=== PATIENT | male | born 1945 | race Caucasian/White ===

== ENCOUNTER 2024-12-12 14:02 | Emergency (ER) | payer MEDICARE, SELFPAY ==
[2024-12-12 14:03] VITALS: BP 155/85; PULSE 110; RESP 17; TEMP 36.4; O2SAT 97
--- OUTSIDE RECORDS SUMMARY | 2024-12-12 14:03 | XMS_ITS | Encounter Summary ---
Author Organization [facility] Address [address] [place] [id number] Care Team Providers Care Emotionally Impaired Teacher Name Role Phone Yaneth Short MD Primary Care Provider [phone] Amelia Oliveros PA-C Unavailable [phone] Source Comments In the event this information is protected by the Federal Confidentiality of Alcohol and Drug AbusePatient Records regulations: The Federal rules restrict any use of the information to criminally investigate or prosecute any alcohol or drug abuse patient.[facility] Encounter Details Date Type Department Care Team (Late st Contact Info) Description 08/28/2024 [place] [id number] Provider, [facility] Financial Clearance Social History Tobacco Use Types Packs/Day Years Used Date Smoking Tobacco: Never Smokeless Tobacco: Never [facility] Utilities Answer Date Recorded In the past 12 months has [employer] electric, gas, oil, or water company threatened to shut off services in your home? No 08/14/2024 Social Connection and Isolation Panel [NHANES] A nswer Date Recorded In a typical week, how many times do you talk on the phone with family, friends, or neighbors? Twice a week 08/14/2024 How often do you get together with friends or re latives? Never 08/14/2024 How often do you attend zoroastrian or pentecostalism serv ices? Never 08/14/2024 Do you belong to any clubs o r organizations such as zoroastrian groups, unions, fraternal or athletic groups, or school groups? No 08/14/2024 How often do you attend meet ings of the clubs or organizations you belong to? Never 08/14/2024 Are you , , di vorced, , never , or living with a partner? 08/14/2024 AUDIT-C Answer Date Recorded Q1: How often do you have a drink containing alcohol? 4 or more times a week 08/14/2024 Q2: How many drinks containi ng alcohol do you have on a typical day when you are drinking? 1 or 2 Q3: How often do you have si x or more drinks on one occasion? Never 08/14/2024 Overall Financial Resource Strain (CARDIA) Answe r Date Recorded How hard is it for you to pa y for the very basics like food, housing, medical care, and heating? Not very hard 08/14/2024 PHQ-2 Answer Date Recorded PHQ-2 score 4 08/14/2024 [facility] - Occupational Stress Questionnaire Answer Date Recorded Do you feel stress - tense, restless, nervous, or anxious, or unable to sleep at night because your mind is troubled all the time - these days? To some extent 08/14/2024 Exercise Vital Sign Answer Date Recorde d On average, how many days pe r week do you engage in moderate to strenuous exercise (like a brisk walk)? 2 days 08/14/2024 On average, how many minutes do you engage in exercise at this level? 20 min 08/14/2024 Hunger Vital Sign Answer Date Recorded Within the past 12 months, y ou worried that your food would run out before you got the money to buy more. Never true 08/14/20 24 Within the past 12 months, t he food you bought just didn't last and you didn't have money to get more. Never true 08/14/2024 PRAPARE - Transportation Answer Date Re corded In the past 12 months, has l ack of transportation kept you from medical appointments or from getting medications? No 08/05 In the past 12 months, has l ack of transportation kept you from meetings, work, or from getting things needed for daily living? No 08/14/2024 Housing Stability Vital Sign Answer Brenden e Recorded In the last 12 months, was t here a time when you were not able to pay the mortgage or rent on time? No 08/14/2024 Number of Times Moved in the Last Year Not on fi le 08/14/2024 Homeless in the Last Year Not on file 2023 Area Deprivation Index Answer Date Haider rded National Score (1-100), lower number is lower ri sk 33 02/15/2024 State Score (1-10), lower number is lower risk 1 02/15/2024 Data from: https://www.neighborhoodatlas.medicine.[facility].edu/. Last address used for calculation [employer] 02/15/2024 Sex and Gender Information Value Date Recorded Sex Assigned at Male 02/13/2024 12:00 PM EDT Gender Identity Not on file Sexual Orientation Straight 02/13/2024 12 :00 PM EDT documented as of this encounter Functional Status Functional Status Response Date of Assess ment Are you deaf or do you have serious difficulty h earing? No 08/22/2024 Are you blind or do you have serious difficulty seeing, even when wearing glasses? No 08/22/2024 Do you have serious difficul ty walking or climbing stairs? No 08/22/2024 Do you have difficulty dressing or bathing? No 08/22/2024 Because of a physical, menta l, or emotional condition, do you have difficulty doing errands alone such as visiting a doctor's office or shopping? No 08/22/2024 Cognitive Status Response Date of Assessm ent Because of a physical, menta l, or emotional condition, do you have serious difficulty concentrating, remembering, or making decisions? No 08/22/2024 documented as of this encounter Plan of Treatment Not on file documented as of this encounter Visit Diagnoses Not on filedocumented in this encounter Care Teams Emotionally Impaired Teacher Relationship Specialty [place] [id number] [place] [address] PCP - General Internal Medicine 02/15/24 Amelia Oliveros PA-C [id number] [facility], [place] [phone] Content Management Consultant Internal Medicine 10/12/24 documented as of this encounter
--- OUTSIDE RECORDS SUMMARY | 2024-12-12 14:04 | XMS_ITS | Clinical Summary ---
Author Organization [facility] Address [address] [place] [id number] Care Team Providers Care Cfo Name Role Phone Yaneth Short MD Primary Care Provider [phone] Amelia Oliveros PA-C Unavailable [phone] Allergies No known active allergies Medications Medication Sig Dispensed Refills Start Date End Date Status torsemide (DEMADEX) 20 mg tablet Take 1 tablet by mouth once daily. 14 tablet 09/24/2023 Active lisinopril (ZESTRIL) 10 mg tabletIndications:E ssential hypertension Take 1 tablet by mouth two times a day. 180 tablet 3 03/03/2024 Active metoprolol succinate ER (TOPROL XL) 25 mg 24 hr tabletIndications:E ssential hypertension Take 1 tablet by mouth two times a day. 180 tablet 3 03/03/2024 Active sertraline (ZOLOFT) 100 mg tabletIndications:M oderate episode of recurrent major depressive disorder (HCC) Take 2 tablets by mouth once daily. 180 tablet 03/03/2024 03/03/2025 Active atorvastatin (LIPITOR) 40 mg tablet Take 1 tablet by mouth once daily. 90 tablet 3 03/03/2024 Active Cholecalciferol, Vitamin D3, (VITAMIN D-3) 50 mcg (2,000 unit) cap Take 1 capsule by mouth once daily. 90 capsule 03/03/2024 Active dabigatran etexilate (PRADAXA) 150 mg Take 1 capsule by mouth two times a day. 180 capsule 3 03/03/2024 Active fluticasone-salmete rol (ADVAIR, WIXELA) 250-50 mcg/dose inhaler Inhale 1 Puff as instructed two times a day. 60 Each 11 03/03/2024 Active potassium chloride ER (KLOR-CON) 20 mEq tablet Take 1 tablet by mouth once daily. 90 tablet 3 03/03/2024 Active tiotropium bromide (SPIRIVA RESPIMAT) 2.5 mcg/actuation inhaler Inhale 2 Puffs as instructed once daily. 3 Each 3 03/03/[address] (PROTONIX) 40 mg tablet Take 1 tablet by mouth once daily. 90 tablet 3 03/03/2024 Active Thiamine HCl 500 mg tablet Take 1 tablet by mouth once daily. 90 tablet 3 07/14/2024 Active cyanocobalamin (VITAMIN B-12) 500 mcg tablet Take 1 tablet by mouth once daily. Active spironolactone (ALDACTONE) 25 mg tablet Take 25 mg by mouth once daily. Active albuterol HFA (PROVENTIL HFA, VENTOLIN HFA) 90 mcg/actuation inhalerIndications: Chronic obstructive pulmonary disease, unspecified COPD type (HCC) Inhale 2 Puffs as instructed every 4 hours as needed for wheezing/shortne ss of breath. 18 g 3 08/21/2024 Active metFORMIN ER (GLUCOPHAGE XR) 500 mg 24 hr tablet Take one tablet by mouth once daily 90 tablet 3 08/21/2024 Active Active Problems Problem Noted Date Diagnosed Date Stage 3b chronic kidney disease 09/02/2024 Severe recurrent major depre ssion without psychotic features 08/22/2024 MDD (major depressive disord er), recurrent episode, moderate 08/22/2024 Assessment & Plan (08/27/2024 8:54 AM EDT): Care per psych mood stable denies SI Tsh level ordered on vit d and b Labs ok Check weekly in snf Obesity, Class I, BMI 30-34.9 08/21/2024 Avascular necrosis 02/15/2024 Acute pulmonary edema 02/15/2024 Chronic congestive heart trena lure, unspecified heart failure type 02/15/2024 Moderate episode of recurrent major depressive d isorder 02/15/2024 Atherosclerosis of aorta 02/15/2024 Seizure 02/15/2024 Other primary thrombophilia 02/15/2024 Atrial fibrillation 09/26/2023 COPD (chronic obstructive pulmonary disease) Assessment & Plan (08/27/2024 8:54 AM EDT): No wheezes dulera spiriva no SOB Depression 09/26/2023 Type 2 diabetes mellitus wit h diabetic chronic kidney disease, unspecified CKD stage, unspecified whether 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 insulin use 09/26/2023 Essential hypertension 09/26/2023 Assessment & Plan (08/27/2024 8:54 AM EDT): Monitor b/p on lisinopril spironolactone torsemide , bb GERD (gastroesophageal reflux disease) Assessment & Plan (08/27/2024 8:54 AM EDT): On PPI HLD (hyperlipidemia) 09/26/2023 Assessment & Plan (08/27/2024 8:54 AM EDT): On statin Sleep apnea 09/26/2023 Diabetes mellitus Assessment & Plan (08/27/2024 8:54 AM EDT): Metformin watch labs Hx a fib : on pradaxa RRR on exam on BB Encounters Date Type Department Care Team Description 10/11/2024 Get Medical Advice Internal Medicine [address] [place] [address] [place] [phone] Yaneth Short MD Is malpractice in your arena. 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 09/12/2024 Travel 09/11/2024 8:00 AM EST Office Visit [facility] Ophthalmology [address] [place], [place] [phone] Clement Pirnce, OD Posterior capsular opacification visually significant of both eyes (Primary Dx); Pseudophakia; Posterior vitreous detachment of both eyes from Last 3 Months Immunizations Name Administration Dates Next Due COVID-19 vaccine, age 12+ yr (PFIZER-BIONTECH COMIRNATY) 08/21/2024 influenza (HD-IIV3) vaccine, age 65+ yr, high dose, trivalent, PF (FLUZONE HIGH-DOSE) 08/21/2024,08/12/2018,07/19/2017 influenza (IIV3) vaccine, tr ivalent, PF (AFLURIA, FLUARIX, FLULAVAL, FLUVIRIN, FLUZONE) 09/08/2016,08/20/2015,07/31/2014 influenza (IIV4) vaccine, ag e 6 mo - 64 yr, quadrivalent, PF (AFLURIA, FLUARIX, FLULAVAL, FLUZONE) 02/09/2023,08/24/2021 influenza (LAIV) vaccine, na atif, unspecified formulation 08/13/2019,08/04/2013,01/01/2013 influenza vaccine, split virus 09/25/2006,2004 pneumococcal conjugate (PCV1 3) vaccine, 13 valent (PREVNAR 13) 12/07/2015 pneumococcal polysaccharide (PPV23) vaccine, 23 valent (PNEUMOVAX 23) 03/09/2017,08/05/2010 tetanus diphtheria pertussis (Tdap) vaccine, age 7+ yr (ADACEL, BOOSTRIX) 08/11/2020,03/14/2010 zoster (RZV) vaccine, recomb inant (SHINGRIX) 02/20/2022,10/17/2021 Family History Medical History Relation Name Comments Cataract Father No Known Problems Maternal Grandfather No Known Problems Maternal Grandmother No Known Problems Mother No Known Problems Paternal Grandfather No Known Problems Paternal Grandmother Amblyopia No Family History Blindness No Family History Detached Retina No Family History Glaucoma No Family History Macular Degen No Family History Strabismus No Family History Relation Name Status Comments Father Maternal Grandfather Maternal Grandmother Mother Paternal Grandfather Paternal Grandmother Social History Tobacco Use Types Packs/Day Years Used Date Smoking Tobacco: Never Smokeless Tobacco: Never [facility] Utilities Answer Date Recorded In the past 12 months has th e electric, gas, oil, or water company threatened [...] Never 08/14/2024 How often do you attend mandaeism or uatsdin serv ices? Never 08/14/2024 Do you belong to any clubs o r organizations such as mandaeism groups, unions, fraternal or athletic groups, or [...] Answer Date Recorded PHQ-2 score 4 08/14/2024 [facility] [place] [facility] Occup[facility] - Occupational Stress [...] is lower risk 1 02/15/2024 Data from: https://www.neighborhoodatlas.medicine.[facility].edu/. Last address used for calculation [employer] 02/15/2024 Sex and Gender Information Value Date Recorded Sex Assigned at Male 02/13/2024 12:00 PM EDT Gender Identity Not on file Sexual Orientation Straight 02/13/2024 12 :00 PM EDT Last Filed Vital Signs Vital Sign Reading Time Taken Comments Blood Pressure 152/81 08/22/2024 12:59 PM EDT Pulse 101 08/22/2024 12:59 PM EDT Temperature 36.5 C (97.7 F) 08/22/2024 12:59 PM EDT Respiratory Rate 16 08/22/2024 12:59 PM EDT Oxygen Saturation 95% 08/22/2024 12:59 PM EDT Inhaled Oxygen Concentration - - Weight 91.7 kg (202 lb 3.2 oz) 08/22/2024 12:59 PM EDT Height 180.3 cm (5' 11 ) 08/22/2024 12:59 PM EDT Body Mass Index 28.2 08/22/2024 12:59 PM EDT Plan of Treatment Health Maintenance Due Date Last Done Comments Advance Directive Discussion 11/05/2024 02/15/2024 Diabetic Foot Exam 02/14/2025 02/15/2024 RSV Vaccine (1 - 1-dose 75+ series) 02/14/2025 Postponed from 2020 (Declined at this time) Spirometry 02/14/2025 Postponed from 1963 (Declined at this time) HbA1C 02/19/2025 08/21/2024, 02/04, 03/13/2023, Additional history exists LDL Cholesterol 02/26/2025 02/27/2024 Urine Albumin:Creatinine Ratio 02/26/2025 02/27/2024 Annual PCP Team Chronic Disease Visit 08/21/2025 08/21/2024 Anxiety Screening 08/21/2025 08/21/2024, 08/21/2024 BP Controlled (<130/80) 08/21/2025 08/21/2024 Hemoglobin/Hematocrit 08/21/2025 08/21/2024 , 02/27/2024, 09/24/2023, Additional history exists Serum Creatinine 08/21/2025 08/21/2024, , 09/24/2023, Additional history exists Dilated Retinal Exam 09/12/2025 09/12/2024, 09/11/20 DTaP,Tdap,Td Vaccine (3 - Td or Tdap) 08/11/2030 08/11/2020, 03/14/2010 Pneumococcal Vaccine: 50+ Completed 2016, 12/07/2015, 08/05/2010 Shingrix Vaccine Completed 02/20/2022, 10/17/2021 Covid-19 Vaccine Completed 08/21/2024, , 10/24/2021, Additional history exists Influenza Vaccine Completed 08/21/2024, , 08/24/2021, Additional history exists Procedures Procedure Name Priority Date/Time Associated Diagnosis Comments YAG CAPSULOTOMY OD (RIGHT EYE) Today 09/12/2024 9:17 AM EST Pseudophakia Posterior capsular opacification visually significant of both eyes Blurry vision, bilateral YAG CAPSULOTOMY OS (LEFT EYE) Routine 09/12/2024 9:16 AM EST Pseudophakia Posterior capsular opacification visually significant of both eyes Blurry vision, bilateral EPILATION OF TRICHIASIS, FORCEPS Routine 09/12/2024 9:14 AM EST 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 CBC + DIFF STAT 08/21/2024 1:18 PM EDT COMP METABOLIC PANEL STAT 08/21/2024 1:18 PM EDT HEMOGLOBIN A1C (POC) Routine 08/21/2024 10:29 AM EDT Type 2 diabetes mellitus with stage 3b chronic kidney disease, without long-term current use of insulin (HCC) ALBUMIN/CREAT RATIO RND UR Routine 02/27/2024 3:51 PM EDT Type 2 diabetes mellitus with diabetic chronic kidney disease, unspecified CKD stage, unspecified whether group home insulin use (HCC) LIPID PANEL BASIC Routine 02/27/2024 3:3 8 PM EDT Hyperlipidemia, unspecified hyperlipidemia type from Last 3 Months or Most Recently Relevant to Health Maintenance Results * YAG CAPSULOTOMY OD (RIGHT EYE) (09/12/2024 9:17 AM EST) Angel Luis Isabel MD - 09/12/2024 9:17 AM EST Date of Procedure 09/12/2024 [facility] Protocol Safety Checklist Sign In: A moment to CARE completed, Special equipment verified, Appropriate PPE verified, Patient name, date of , allergies and intended procedure verified. Provider Confirms: Intended patient and procedure match the source document, Consent documented and matches the intended procedure, Correct side/site marked visible. No relevant labs, photos, and/or imaging studies to review. No medications required for procedure. No fire risk. No implants. Anesthesia None. Pre Laser Meds None . Laser Paramters Power: 2. Total Spots: 16. Total Energy: 32. Post Laser Meds None. Home Going Prescription None. Sign Out Sign out discussion completed, All instruments, equipment, and/or possible retained foreign bodies accounted for, Post-procedure follow up management communicated. No specimens. Angel Luis Ruffin MD OPHTHALMOLOGY * YAG CAPSULOTOMY OS (LEFT EYE) (09/12/2024 9:16 AM EST) Narrative Angel Luis Ruffin MD - 09/12/2024 9:16 AM EST Date of Procedure 09/12/2024 [facility] Protocol Safety Checklist Sign In: A moment to CARE completed, Special equipment verified, Appropriate PPE verified, Patient name, date of , allergies and intended procedure verified. Provider Confirms: Consent documented and matches the intended procedure, Intended patient and procedure match the source document, Correct side/site marked visible. No relevant labs, photos, and/or imaging studies to review. No medications required for procedure. No fire risk. No implants. Anesthesia None. Pre Laser Meds 1-2 drops Tropicamide 1%. Laser Paramters Power: 2. Total Spots: 15. Total Energy: 30. Post Laser Meds None. Home Going Prescription None. Sign Out Sign out discussion completed, All instruments, equipment, and/or possible retained foreign bodies accounted for, Post-procedure follow up management communicated. No specimens. Angel Luis Ruffin MD OPHTHALMOLOGY * EPILATION OF TRICHIASIS, FORCEPS (09/12/2024 9:14 AM EST) Narrative Angel Luis Ruffin MD - 09/12/2024 9:14 AM EST Date of Procedure 09/12/2024 [facility] Protocol Safety Checklist Sign In: A moment to CARE completed, Special equipment verified, Appropriate PPE verified, Patient name, date of , allergies and intended procedure verified. Provider Confirms: Correct side/site marked visible. No relevant labs, photos, and/or imaging studies to review. No medications required for procedure. No fire risk. No implants. Location Right lower lid. Sign Out Sign out discussion completed, All instruments, equipment, and/or possible retained foreign bodies accounted for, Post-procedure follow up management communicated. No specimens. Angel Luis Ruffin MD OPHTHALMOLOGY * (ABNORMAL) COMPREHENSIVE METABOLIC PANEL (08/21/2024 1:18 PM EDT) [facility] Protein, Total 6.9 6.3 - 8.0 g/dL 08/21/2024 2:11 PM EDT [facility] Albumin 4.4 3.9 - 4.9 g/dL 08/21/2024 2:11 PM EDT [facility] Calcium, Total 9.1 8.5 - 10.2 mg/dL 08/21/2024 2:11 PM EDT [facility] Bilirubin, Total 1.0 0.2 - 1.3 mg/dL 08/21/2024 2:11 PM EDT [facility] Alkaline Phosphatase 81 38 - 113 U/L 08/21/2024 2:11 PM EDT [facility] AST 25 14 - 40 U/L 08/21/2024 2:11 PM EDT [facility] ALT 27 10 - 54 U/L 08/21/2024 2:11 PM EDT [facility] Glucose 111(H) 74 - 99 mg/dL 08/21/2024 2:11 PM EDT [facility] Comment: The [place] Diabetes Association (ADA) provides guidance for cutoff values for fasting glucose and random glucose. The ADA defines fasting as no caloric intake for at least 8 hours. Fasting plasma glucose results between 100 to 125 mg/dL indicate increased risk for diabetes (prediabetes). Fasting plasma glucose results greater than or equal to 126 mg/dL meet the criteria for diagnosis of diabetes. In the absence of unequivocal hyperglycemia, results should be confirmed by repeat testing. In a patient with classic symptoms of hyperglycemia or hyperglycemic crisis, random plasma glucose results greater than or equal to 200 mg/dL meet the criteria for diagnosis of diabetes. Reference: Standards of Medical Care in Diabetes 2016, [place] Diabetes Association. Diabetes Care. 2016.39(Suppl 1). BUN 26(H) 9 - 24 mg/dL 08/21/2024 2:11 PM EDT [facility] Creatinine 1.86(H) 0.73 - 1.22 mg/dL 08/21/2024 2:11 PM EDT [facility] Sodium 138 136 - 144 mmol/L 08/21/2024 2:11 PM EDT [facility] Potassium 4.3 3.7 - 5.1 mmol/L 08/21/2024 2:11 PM EDT [facility] Chloride 103 98 - 107 mmol/L 08/21/2024 2:11 PM EDT [facility] CO2 21(L) 22 - 30 mmol/L 08/21/2024 2:11 PM EDT [facility] Anion Gap 14 8 - 15 mmol/L 08/21/2024 2:11 PM EDT [facility] Estimated Glomerular Filtration Rate 37(L) >=60 mL/min/1. 73m 08/21/2024 2:11 PM EDT [facility] Comment:Estimated Glomerular Filtration Rate (eGFR) is calculated using the 2020 CKD-EPI creatinine equation. This equation utilizes serum creatinine, sex, and age as parameters. The creatinine assay has traceable calibration to isotope dilution- mass spectrometry. Refer to KDIGO guidelines for clinical interpretation. In patients with unstable renal function, e.g. those with acute kidney injury, the eGFR may not accurately reflect actual GFR. Blood BLOOD SPECIMEN / Unknown Venipuncture / Unknown 08/21/2024 1:18 PM EDT 08/21/2024 1:28 PM EDT Jermaine Mensah DO LABORATORY [facility] [address] * (ABNORMAL) COMPLETE BLOOD COUNT AND DIFFERENTIAL (08/21/2024 1:18 PM EDT) WBC 9.20 3.70 - 11.00 k/uL 08/21/2024 1:33 PM EDT [facility] RBC 4.79 4.20 - 6.00 m/uL 08/21/2024 1:33 PM EDT [facility] Hemoglobin 15.8 13.0 - 17.0 g/dL 08/21/2024 1:33 PM EDT [facility] Hematocrit 43.0 39.0 - 51.0 % 08/21/2024 1:33 PM EDT [facility] MCV 89.8 80.0 - 100.0 fL 08/21/2024 1:33 PM EDT [facility] MCH 33.0 26.0 - 34.0 pg 08/21/2024 1:33 PM EDT [facility] MCHC 36.7(H) 30.5 - 36.0 g/dL 08/21/2024 1:33 PM EDT [facility] RDW-CV 12.5 11.5 - 15.0 % 08/21/2024 1:33 PM EDT [facility] Platelet Count 205 150 - 400 k/uL 08/21/2024 1:33 PM EDT [facility] MPV 11.1 9.0 - 12.7 fL 08/21/2024 1:33 PM EDT [facility] Neutrophils % 77.2 % 08/21/2024 1:33 PM EDT [facility] Abs Neut 7.10 1.45 - 7.50 k/uL 08/21/2024 1:33 PM EDT [facility] Lymphocytes % 12.2 % 08/21/2024 1:33 PM EDT [facility] Abs Lymph 1.12 1.00 - 4.00 k/uL 08/21/2024 1:33 PM EDT [facility] Monocytes % 7.2 % 08/21/2024 1:33 PM EDT [facility] Abs Cedar 0.66 <0.87 k/uL 08/21/2024 1:33 PM EDT [facility] Eosinophils % 1.8 % 08/21/2024 1:33 PM EDT [facility] Abs Eosin 0.17 <0.46 k/uL 08/21/2024 1:33 PM EDT [facility] Basophils % 0.4 % 08/21/2024 1:33 PM EDT [facility] Abs Baso 0.04 <0.11 k/uL 08/21/2024 1:33 PM EDT [facility] Immature Granulocytes % 1.2 % 08/21/2024 1:33 PM EDT [facility] Abs Immature Gran 0.11(H) <0.10 k/uL 08/21/2024 1:33 PM EDT [facility] NRBC 0.0 /100 WBC 08/21/2024 1:33 PM EDT [facility] Absolute nRBC <0.01 <0.01 k/uL 08/21/2024 1:33 PM EDT [facility] Diff Type Auto 08/21/2024 1:33 PM EDT [facility] Blood BLOOD SPECIMEN / Unknown Venipuncture / Unknown 08/21/2024 1:18 PM EDT 08/21/2024 1:28 PM EDT Jermaien Mensah DO LABORATORY [facility] [address] [place] [address], * HEMOGLOBIN A1C (POC) (08/21/2024 10:29 AM EDT) Hemoglobin A1C (POCT) 5.4 4.3 - 5.6 % [facility] Comment: Location:[facility], [id number] [place] [address], [id number] Point of care (POC) Hemoglobin A1c (HGBA1C) testing is intended to assess glucose control and provide a management tool for patients known to have diabetes and their healthcare providers. Target HGBA1C levels may depend on specific clinical circumstances. POC HGBA1C is not intended for use as a diagnostic or screening test; laboratory-based testing should be used for diagnostic purposes. The following information is supplemental and may not be applicable to specific diabetes management situations: The POC device stripe matcher provides a normal range of 4.2% to 6.5% for the HGBA1C POC test. However, the [place] Diabetes Association guidelines indicate that patients with HGBA1C in the range of 5.7% to 6.4% are at increased risk for development of diabetes and that intervention by lifestyle modification may be beneficial. A HGBA1C level greater than or equal to 6.5% is considered diagnostic of diabetes, pending confirmatory testing. Use of HGBA1C testing to evaluate glucose control may not be appropriate for patients with hemoglobin variants or other conditions (e.g. anemia) that alter red blood cell lifespan. BLOOD SPECIMEN / Unknown 08/21/2024 10:29 AM EDT Yaneth Short MD POC TESTING Performing Organization Address City/[facility]/ZIP Co de Phone Number [facility] POINT OF CARE [facility] [address] [place], [place] * (ABNORMAL) ALBUMIN/CREATININE RATIO, URINE (02/27/2024 3:51 PM EDT) Creatinine, Ur Random (UCRR) 35.7 20.0 - 300.0 mg/dL 02/27/2024 10:24 PM EDT [facility] Albumin, Urine Random 102.7 mg/L 02/27/2024 10:24 PM EDT [facility] Albumin/Creat Ratio 288(H) <30 mg/g 02/27/2024 10:24 PM EDT [facility] Comment: Adult Male and Female Nephrotic Criteria: <30 mg/g is considered normal to mildly increased 30-300 mg/g is considered moderately increased >300 mg/g is considered severely increased KDIGO. (2013). KDIGO 2012 Clinical Practice Guideline for the Evaluation and Management of Chronic Kidney Disease. Official Journal of the International Society of Nephrology, 3(1), 1-150. Urine URINE SPECIMEN / Unknown Non Blood / Unknown 02/27/2024 3:51 PM EDT 02/27/2024 3:51 PM EDT Ryan Osborne PA-C LABORATORY [facility] [address] [place] [address], * (ABNORMAL) LIPID PANEL BASIC (02/27/2024 3:38 PM EDT) Cholesterol, Total 113 <200 mg/dL 02/27/2024 4:26 PM EDT [facility] Comment: <200 mg/dL, Desirable 200-239 mg/dL, Borderline high >239 mg/dL, High Triglyceride 222(H) <150 mg/dL 02/27/2024 4:26 PM EDT [facility] Comment: <150 mg/dL, Normal 150-199 mg/dL, Borderline high 200-499 mg/dL, High >499 mg/dL, Very high HDL Cholesterol 39(L) >39 mg/dL 4:26 PM EDT [facility] Comment: 40-59 mg/dL, Acceptable >59 mg/dL, High: Negative risk factor for coronary heart disease <40 mg/dL, Low: Positive risk factor for coronary heart disease Non HDL Cholesterol 74 <130 mg/dL 02/27/2024 4:26 PM EDT [facility] Comment: <130 mg/dL, Optimal 130-159 mg/dL, Near optimal/above optimal 160-189 mg/dL, Borderline high 190-219 mg/dL, High >219 mg/dL, Very high Secondary prevention optimal non HDL Cholesterol levels are recommended to be <100 mg/dL Fasting Time 14 hrs 02/27/2024 4:26 PM EDT [facility] VLDL Cholesterol 44(H) <30 mg/dL 02/27/20 4:26 PM EDT [facility] TC:HDL Ratio 2.90 <5.10 02/27/2024 4:26 PM EDT [facility] LDL Cholesterol 30 <100 mg/dL 02/27/2024 4:26 PM EDT [facility] Comment: <100 mg/dL, Optimal 100-129 mg/dL, Near optimal/above optimal 130-159 mg/dL, Borderline high 160-189 mg/dL, High >189 mg/dL, Very high Secondary prevention optimal LDL Cholesterol levels are recommended to be < 70 mg/dL LDL:HDL Ratio 0.77 <2.54 02/27/2024 4:26 PM EDT [facility] Comment: Reference: 1. National Cholesterol Education Program ATP III Guideline At-A-Glance Quick Desk Reference: National Heart, Lung, and Blood [place]. National Institutes of Health. 2001: NIH Publication No. 01-3305. 2. An International Atherosclerosis Society position paper: global recommendations for the management of dyslipidemia: executive summary, Atherosclerosis. 2014: 232(2):410-413. Blood BLOOD SPECIMEN / Unknown Venipuncture / Unknown 02/27/2024 3:38 PM EDT 02/27/2024 3:39 PM EDT Ryan Osborne PA-C LABORATORY [facility] [address] [place] [address], from Last 3 Months or Most Recently Relevant to Health Maintenance Care Teams Cfo Relationship Specialty [place] [address] [place], [place] [phone] PCP - General Internal Medicine 02/15/24 Amelia Oliveros PA-C [id number] [facility], [address] [place], [place] [phone] Engineering Project Designer Internal Medicine 10/12/24
--- OUTSIDE RECORDS SUMMARY | 2024-12-12 14:04 | XMS_ITS | Encounter Summary ---
Author Organization [facility] [place] [address] [place] [address] Care Team Providers Care Cosmetic Sales Name Role Phone Unavailable Primary Care Provider Unavailabl e Prior Encounters Date Type Department Care Team Description 01/10/2023 Travel 01/10/2023 10:30 AM PST Office Visit Dentists [address] [phone] Mahnaz Hogan DMD Plan of Treatment Not on file Procedures Procedure Name Priority Date/Time Associated Diagnosis Comments PROPHYLAXIS - ADULT Routine 01/10/2023 1 0:30 AM PST TOPICAL APPLICATION OF FLUORIDE VARNISH Routine 01/10/2023 10:30 AM PST 11 CEMENT CROWN Routine 01/10/2023 10:30 AM PST 11 CORE BUILDUP, INCLUDING ANY PINS WHEN REQUIRED Routine 01/10/2023 10:30 AM PST 11 CERECFIRED CROWN ANT Routine 01/11/20 10:30 AM PST 10 CEMENT CROWN Routine 01/10/2023 10:30 AM PST 10 CERECFIRED CROWN ANT Routine 01/11/20 10:30 AM PST PANORAMIC RADIOGRAPHIC IMAGE Routine 01/10/2023 10:30 AM PST BITEWING - SINGLE RADIOGRAPHIC IMAGE Routine 01/10/2023 10:30 AM PST ADDITIONAL X-RAY Routine 01/10/2023 10:3 0 AM PST SINGLE X-RAY Routine 01/10/2023 10:30 AM PST LIMITED ORAL EVALUATION - PROBLEM FOCUSED Routine 01/10/2023 10:30 AM PST 7 L AMALGAM FILLING Routine 01/10/2023 1 2:00 AM PST 8 PFM CROWN Routine 01/10/2023 12:00 AM PST 12 ROOT CANAL Routine 01/10/2023 12:00 AM PST 14 PFM CROWN Routine 01/10/2023 12:00 AM PST 4 ROOT CANAL Routine 01/10/2023 12:00 AM PST 4 PFM CROWN Routine 01/10/2023 12:00 AM PST 31 PFM CROWN Routine 01/10/2023 12:00 AM PST 30 CEREC CROWN Routine 01/10/2023 12:00 AM PST 20 CEREC CROWN Routine 01/10/2023 12:00 AM PST 19 CEREC CROWN Routine 01/10/2023 12:00 AM PST 9 CEREC CROWN Routine 01/10/2023 12:00 AM PST 5 CEREC CROWN Routine 01/10/2023 12:00 AM PST 3 CEREC CROWN Routine 01/10/2023 12:00 AM PST 20 DENTAL IMPLANT Routine 01/10/2023 12: 00 AM PST 19 DENTAL IMPLANT Routine 01/10/2023 12: 00 AM PST 29 DENTAL IMPLANT Routine 01/10/2023 12: 00 AM PST 30 DENTAL IMPLANT Routine 01/10/2023 12: 00 AM PST 9 DENTAL IMPLANT Routine 01/10/2023 12:0 0 AM PST 5 DENTAL IMPLANT Routine 01/10/2023 12:0 0 AM PST 3 DENTAL IMPLANT Routine 01/10/2023 12:0 0 AM PST Visit Diagnoses Not on file Insurance [facility]
--- OUTSIDE RECORDS SUMMARY | 2024-12-12 14:04 | XMS_ITS | Encounter Summary ---
Author Organization [facility] Address [address] [place] [address] Care Team Providers Care Kiln Puller Name Role Phone Yaneth Short MD Primary Care Provider [phone] Amelia Oliveros PA-C Unavailable [phone] Source Comments In the event this information is protected by the Federal Confidentiality of Alcohol and Drug AbusePatient Records regulations: The Federal rules restrict any use of the information to criminally investigate or prosecute any alcohol or drug abuse patient.[facility] Encounter Details Date Type Department Care Team (Late st Contact Info) Description 02/18/2024 Patient Msg Rehab and Sports Therapy [address] [place] [address] Provider, Ccf Questionnaire Submission Social History Tobacco Use Types Packs/Day Years Used Date Smoking Tobacco: Never Smokeless Tobacco: Never PHQ-2 Answer Date Recorded PHQ-2 score 0 09/26/2023 Area Deprivation Index Answer Date Haider rded National Score (1-100), lower number is lower ri sk 33 02/15/2024 State Score (1-10), lower number is lower risk 1 02/15/2024 Data from: https://www.neighborhoodatlas.medicine.[facility].edu/. Last address used for calculation [place]ANG [place]ORY 02/15/2024 Sex and Gender Information Value Date Recorded Sex Assigned at Male 02/13/2024 12:00 PM EDT Gender Identity Not on file Sexual Orientation Straight 02/13/2024 12 :00 PM EDT documented as of this encounter Plan of Treatment Not on file documented as of this encounter Visit Diagnoses Not on filedocumented in this encounter Additional Health Concerns Infection Onset Date Last Indicated Resolved Time COVID-19 Rule-Out 08/21/2024 08/21/2024 08/21/2024 5:59 PM EDT documented as of this encounter Care Teams Kiln Puller Relationship Specialty Start Date [place] [id number] [place] [address] PCP - General Internal Medicine 02/15/24 Amelia Oliveros PA-C [address] [place] [address], [address] [place] [address] Meteorological Observer Internal Medicine 10/12/24 documented as of this encounter
--- OUTSIDE RECORDS SUMMARY | 2024-12-12 14:04 | XMS_ITS | Encounter Summary ---
Author Organization [facility] Address [address] [place] [address] Care Team Providers Care Inker Machine Name Role Phone Yaneth Short MD Primary Care Provider [phone] Amelia Oliveros PA-C Unavailable [phone] Source Comments In the event this information is protected by the Federal Confidentiality of Alcohol and Drug AbusePatient Records regulations: The Federal rules restrict any use of the information to criminally investigate or prosecute any alcohol or drug abuse patient.[facility] Encounter Details Date Type Department Care Team (Late st Contact Info) Description 10/02/2024 Patient Msg Cardiology [address] [place] [address] Provider, Ccf Appointment Cancellation Request Social History Tobacco Use Types Packs/Day Years Used Date Smoking Tobacco: Never Smokeless Tobacco: Never [facility] Utilities Answer Date Recorded In the past 12 months has [employer], gas, oil, or water company threatened to [...] Never 08/14/2024 How often do you attend jehovah's witness or jainism serv ices? Never 08/14/2024 Do you belong to any clubs o r organizations such as jehovah's witness groups, unions, fraternal or athletic groups, or [...] Answer Date Recorded PHQ-2 score 4 08/14/2024 [facility] of Occupat ional [facility] - Occupational Stress Questionnaire Answer Date Recorded [...] is lower risk 1 02/15/2024 Data from: https://www.neighborhoodatlas.medicine.[facility].edu/. Last address used for calculation [place]ORY [...] on filedocumented in this encounter Care Teams Inker Machine Relationship Specialty [place] [address] [place] [address] PCP - General Internal Medicine 02/15/24 Amelia Oliveros PA-C [address] [place] [address], [place] [phone] Beauty Director Internal Medicine 10/12/24 documented as of this encounter
--- OUTSIDE RECORDS SUMMARY | 2024-12-12 14:04 | XMS_ITS | Encounter Summary ---
Author Organization [facility] Address [address] [place] [address] Care Team Providers Care Dispatcher Automobile Rental Name Role Phone Yaneth Short MD Primary Care Provider [phone] Amelia Oliveros PA-C Unavailable [phone] Source Comments In the event this information is protected by the Federal Confidentiality of Alcohol and Drug AbusePatient Records regulations: The Federal rules restrict any use of the information to criminally investigate or prosecute any alcohol or drug abuse patient.[facility] Encounter Details Date Type Department Care Team (Late st Contact Info) Description 09/18/2024 Patient Msg Dentistry [address] [address] Provider, Ccf please call to schedule Social History Tobacco Use Types Packs/Day Years Used Date Smoking Tobacco: Never Smokeless Tobacco: Never [facility] Utilities Answer Date Recorded In the past 12 months has [employer], gas, oil, or water company threatened to [...] Never 08/14/2024 How often do you attend mu-ism or christian serv ices? Never 08/14/2024 Do you belong to any clubs o r organizations such as mu-ism groups, unions, fraternal or athletic groups, or [...] Answer Date Recorded PHQ-2 score 4 08/14/2024 [facility] of Occupat ional [facility] - Occupational Stress Questionnaire Answer [...] is lower risk 1 02/15/2024 Data from: https://www.neighborhoodatlas.medicine.[facility].edu/. Last address used for calculation CHANG [...] on filedocumented in this encounter Care Teams Dispatcher Automobile Rental Relationship Specialty [place] [address] [place] [address] PCP - General Internal Medicine 02/15/24 Amelia Oliveros PA-C [address] [place] [address], [place] [phone] Nurse Clinician Internal Medicine 10/12/24 documented as of this encounter
--- OUTSIDE RECORDS SUMMARY | 2024-12-12 14:04 | XMS_ITS ---
Author Organization [facility] Address [address] [place] [address] Care Team Providers Care Policy Advisor Name Role Phone Unavailable Unavailable Unavailable Surgery Details Not on file Complications Check Surgery Details section. Procedure Estimated Blood Loss Check Surgery Details section. Procedure Findings Check Surgery Details section. Procedure Specimens Taken Check Surgery Details section.
--- OUTSIDE RECORDS SUMMARY | 2024-12-12 14:04 | XMS_ITS | Encounter Summary ---
Author Organization [facility] Address [address] [place] [address] Care Team Providers Care Billet Checker Name Role Phone Yaneth Short MD Primary Care Provider [phone] Amelia Oliveros PA-C Unavailable [phone] Source Comments In the event this information is protected by the Federal Confidentiality of Alcohol and Drug AbusePatient Records regulations: The Federal rules restrict any use of the information to criminally investigate or prosecute any alcohol or drug abuse patient.[facility] Encounter Details Date Type Department Care Team (Late st Contact Info) Description 08/27/2024 Patient Msg Geriatrics [address] [place] [phone] Provider, Ccf Geriatric appointment needs scheduled Social History Tobacco Use Types Packs/Day Years Used Date Smoking Tobacco: Never Smokeless Tobacco: Never [facility] Utilities Answer Date Recorded In the past 12 months has th [employer], gas, oil, or water company threatened [...] Never 08/14/2024 How often do you attend hindu or zoroastrian serv ices? Never 08/14/2024 Do you belong to any clubs o r organizations such as hindu groups, unions, fraternal or athletic groups, or [...] Answer Date Recorded PHQ-2 score 4 08/14/2024 [facility] of Occupat ional [facility] - Occupational Stress Questionnaire Answer Date Recorded [...] is lower risk 1 02/15/2024 Data from: https://www.neighborhoodatlas.medicine.[facility].edu/. Last address used for calculation CHANG [...] on filedocumented in this encounter Care Teams Billet Checker Relationship Specialty [place] [address] [place] [address] PCP - General Internal Medicine 02/15/24 Amelia Oliveros PA-C [address] [place] [address], [place] [phone] Parliamentary Counsel Internal Medicine 10/12/24 documented as of this encounter
--- OUTSIDE RECORDS SUMMARY | 2024-12-12 14:04 | XMS_ITS | Encounter Summary ---
Author Organization [facility] Address [address] [place] [address] Care Team Providers Care Cupola Worker Name Role Phone Yaneth Short MD Primary Care Provider [phone] Amelia Oliveros PA-C Unavailable [phone] Source Comments In the event this information is protected by the Federal Confidentiality of Alcohol and Drug AbusePatient Records regulations: The Federal rules restrict any use of the information to criminally investigate or prosecute any alcohol or drug abuse patient.[facility] Encounter Details Date Type Department Care Team (Late st Contact Info) Description 03/03/2024 Patient Msg [facility] Physical Therapy [address] [place] [address] Pa Kelley, PT [address] [place] [address] Appointment Request Social History Tobacco Use Types Packs/Day Years Used Date Smoking Tobacco: Never Smokeless Tobacco: Never PHQ-2 Answer Date Recorded PHQ-2 score 0 09/26/2023 Area Deprivation Index Answer Date Haider rded National Score (1-100), lower number is lower ri sk 33 02/15/2024 State Score (1-10), lower number is lower risk 1 02/15/2024 Data from: https://www.neighborhoodatlas.[facility]/. Last address used for calculation [place] [...] documented as of this encounter Care Teams Cupola Worker Relationship Specialty Start Date End Date Yaneth Short MD [address] [place] [address] PCP - General Internal Medicine 02/15/24 mAelia Oliveros PA-C [address] [place] [address], [address] [place] [address] Auger Supervisor Internal Medicine 10/12/24 documented as of this encounter
--- OUTSIDE RECORDS SUMMARY | 2024-12-12 14:04 | XMS_ITS | CCD ---
Author Organization [facility] Address [address] [place] [place] [address] Care Team Providers Care Welfare Centre Manager Name Role Phone Unavailable Primary Care Provider Unavailabl e Allergies Active Allergy Reactions Criticality Noted Date Comments Egg Derived Nausea Only 03/08/2018 Fatigue Lisinopril Cough 12/22/2008 Metoprolol Unknown 10/15/2017 Fatigue; worsened depression Medications amLODIPine (NORVASC) 10 mg tablet Take 1 tablet by mouth 1 (one) time each day. 10/02/2022 Active atorvastatin (LIPITOR) 40 mg tablet Take 1 tablet by mouth 1 (one) time each day. 04/17/2022 Active dabigatran etexilate (Pradaxa) 150 mg capsule Take 1 capsule by mouth. 09/09/2021 Active escitalopram (LEXAPRO) 20 mg tablet Take 1 tablet by mouth 1 (one) time each day. 08/14/2022 Active fluticasone propion-salmete roL (Wixela Inhub) 250-50 mcg/dose diskus inhaler Inhale 1 puff. 03/11/2021 Active glipiZIDE (GLUCOTROL XL) 5 mg 24 hr tablet Take 1 tablet by mouth every morning with a meal or first meal of the day 07/07/2022 Active hydrocortisone 2.5 % cream Apply topically. 10/02/2022 Active lisinopriL (PRINIVIL,ZESTR IL) 10 mg tablet Take 1 tablet by mouth in the morning and at bedtime. 10/12/2022 Active metFORMIN XR (GLUCOPHATE-XR) 500 mg 24 hr tablet Take 3 tablets by mouth 1 (one) time each day. 10/02/2022 Active metoprolol succinate (TOPROL-XL) 25 mg 24 hr tablet Take 1 tablet by mouth in the morning and at bedtime. 10/12/2022 Active metoprolol tartrate (LOPRESSOR) 25 mg tablet Take 12.5 mg by mouth in the morning and 12.5 mg in the evening. Active sertraline (ZOLOFT) 50 mg tablet Take 3 tablets by mouth 1 (one) time each day. 10/05/2022 Active spironolactone (ALDACTONE) 25 mg tablet Take 1 tablet by mouth 1 (one) time each day. 10/02/2022 Active Spiriva Respimat 2.5 mcg/actuation mist Inhale 2 puffs in the morning. 12/20/2022 Active torsemide (DEMADEX) 20 mg tablet Take 1 and one-half tablets (30mg) by mouth once daily 05/15/2022 Active Active Problems Problem Noted Date Diagnosed Date Gastroenteritis 08/08/2022 Unspecified rotator cuff tea r or rupture of right shoulder, not specified as traumatic 02/01/2022 Other specified counseling 10/31/2021 Overview (01/10/2023): [facility]: ; [facility] Address: P SRO MTM Medicare Protocol Authorization And if eligible, [facility] protocol authorization Protocol authorized: Yes (Medicare protocol expires 10/31/2024) Authorized by: Bruce Lockett) Authorization method: Staff message Protocol authorized date: 10/31/21 Dysphagia 08/24/2021 Overview (01/10/2023): Added automatically from request for surgery [id number] Type 2 diabetes mellitus wit h diabetic chronic kidney disease 08/24/2021 Type 2 diabetes mellitus 01/24/2021 Other primary thrombophilia 01/05/2021 biostatistician (current) use of anticoagulants 2019 Overview (01/10/2023): dabigatran (Pradaxa) 150 mg twice daily Indications: Non-valvular Atrial fibrillation/Flutter Expected length of therapy: Indefinite (Provider to assess risk vs benefits periodically) Considerations: pool: [facility] Periop Guideline Reference: Go to Clinical Library ==> Search: Anticoagulation Management - Perioperative- Anticoagulation Services Guideline Atherosclerosis of aorta (HCC) 08/04/2020 Diabetic cataract, associate d with type 2 diabetes mellitus ([facility]) ([facility]) 05/27/2020 History of cerebrovascular a ccident (CVA) with residual deficit 03/22/2020 Overview (01/10/2023): 2007. Perioperative. Some residual right hemianopsia and memory. Atrial fibrillation 01/27/2020 Acute respiratory failure with hypoxemia 020 Acute systolic heart failure 01/26/2020 Chronic obstructive pulmonary disease ([facility]) 01/04 Hyperlipidemia 11/11/2019 Arteriosclerosis of coronary artery 11/14/2018 Chronic heart failure with preserved ejection fr action 11/14/2018 Type 2 diabetes mellitus wit hout complication ([facility]) ([facility]) 03/08/2018 Type 2 diabetes mellitus wit hout complication, without long-term current use of insulin ([facility]) ([facility]) 03/08/2018 Dyspnea on exertion 02/16/2018 Seizure ([facility]) 08/08/2017 Stage 2 chronic kidney disease 09/08/2016 Bilateral lower extremity edema 06/02/2016 Edema 06/02/2016 At risk for Mycobacterium ch imaera infection associated with extracorporeal circulatory equipment 10/12/2015 Overview (01/10/2023): 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 [I63.40] HX OF EMBOLIC STROKE [Z86.73] Spinal stenosis of lumbar region 06/26/2013 Overview (01/10/2023): S/p spinal fusion. S/p spinal fusion. 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 Fatty liver 10/30/2008 Metabolic syndrome X 08/20/2008 Primary hypertension 06/04/2008 Overview (01/10/2023): Avoiding SUNG-I and ARB's due to HCM Avoiding SUNG-I and ARB's due to HCM Avascular necrosis (CMS/HCC) (HCC) 01/04/2007 Primary osteoarthritis involving multiple joints 01/04/2007 Simple chronic bronchitis (HCC) 08/30/2005 Gastroesophageal reflux disease without esophagi tis 02/09/2004 Obstructive sleep apnea syndrome in adult 2003 Overview (01/10/2023): On CPAP On CPAP Social History Tobacco Use Types Packs/Day Years Used Date Smoking Tobacco: Never Assessed Sex and Gender Information Value Date Recorded Sex Assigned at Not on file Legal Sex Male 2:04 PM PST Gender Identity Not on file Sexual Orientation Not on file Plan of Treatment Not on file Procedures Procedure Name Priority Date/Time Associated Diagnosis Comments PANORAMIC RADIOGRAPHIC IMAGE Routine 01/10/2023 10:30 AM PST PROPHYLAXIS - ADULT Routine 01/10/2023 1 0:30 AM PST from Last 3 Months or Most Recently Relevant to Health Maintenance
--- OUTSIDE RECORDS SUMMARY | 2024-12-12 14:04 | XMS_ITS | Referral Summary ---
Author Organization [facility] Address [address] [place] [address] Care Team Providers Care Dredge Engineer Name Role Phone Unavailable Primary Care Provider [...] 02/01/2022 Other specified counseling 10/31/2021 Overview (01/10/2023): [facility]: ; [facility] Address: P SRO MTM Medicare Protocol Authorization And if eligible, [facility] protocol authorization Protocol authorized: Yes (Medicare protocol expires 10/31/2024) Authorized by: Bruce Lockett) Authorization method: Staff message Protocol authorized date: 10/31/21 Dysphagia 08/24/2021 Overview (01/10/2023): Added automatically from request for surgery [id number] Type 2 diabetes mellitus wit h diabetic chronic kidney disease 08/24/2021 Type 2 diabetes mellitus 01/24/2021 Other primary thrombophilia 01/05/2021 long term acute care registered nurse (current) use of anticoagulants 2019 Overview (01/10/2023): dabigatran (Pradaxa) 150 mg twice daily Indications: Non-valvular Atrial fibrillation/Flutter Expected length of therapy: Indefinite (Provider to assess risk vs benefits periodically) Considerations: pool: P [facility] SERV[facility] Periop Guideline Reference: Go to Clinical Library ==> Search: Anticoagulation Management - Perioperative- Anticoagulation Services Guideline Atherosclerosis of aorta ([facility]) 08/04/2020 Diabetic cataract, associate d with type 2 diabetes mellitus ([facility]) ([facility]) 05/27/2020 History of cerebrovascular a ccident (CVA) with residual deficit 03/22/2020 Overview (01/10/2023): 2007. Perioperative. Some residual right hemianopsia and memory. Atrial fibrillation 01/27/2020 Acute respiratory failure with hypoxemia 020 Acute systolic heart failure 01/26/2020 Chronic obstructive pulmonary disease ([facility]) 01/04 Hyperlipidemia 11/11/2019 Arteriosclerosis of coronary artery 11/14/2018 Chronic heart failure with preserved ejection fr action 11/14/2018 Type 2 diabetes mellitus wit hout complication ([facility]) ([facility]) 03/08/2018 Type 2 diabetes mellitus wit hout complication, without long-term current use of insulin ([facility]) ([facility]) 03/08/2018 Dyspnea on exertion 02/16/2018 Seizure ([facility]) 08/08/2017 Stage 2 chronic kidney disease 09/08/2016 [...] 10/12/2015 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
--- OUTSIDE RECORDS SUMMARY | 2024-12-12 14:04 | XMS_ITS | Encounter Summary ---
Author Organization [facility] Address [address] [place], [place] [id number] Care Team Providers Care Global Risk Management Director Name Role Phone Ryan Osborne PA-C Primary Care Provider [phone] Yaneth Short MD Primary Care Provider [phone] Amelia Oliveros PA-C Unavailable [phone] Source Comments In the event this information is protected by the Federal Confidentiality of Alcohol and Drug AbusePatient Records regulations: The Federal rules restrict any use of the information to criminally investigate or prosecute any alcohol or drug abuse patient.[facility] Encounter Details Date Type Department Care Team (Late st Contact Info) Description 02/07/2024 Patient Msg Internal Medicine [address] [place] [address] [address] [place] [address] Ryan Osborne PA-C [address] [place] [address] Appointment Request Social History Tobacco Use Types Packs/Day Years Used Date Smoking Tobacco: Never Smokeless Tobacco: Never PHQ-2 Answer Date Recorded PHQ-2 score 0 09/26/2023 Sex and Gender Information Value Date Recorded Sex Assigned at Male 02/13/2024 12:00 PM EDT Gender Identity Not on file Sexual Orientation Straight 02/13/2024 12 :00 PM EDT documented as of this encounter Miscellaneous Notes * Telephone Encounter - Autumn Schrader - 02/07/2024 2:32 PM EDT OON FC referral filed. documented in this encounter Plan of Treatment Not on file documented as of this encounter Visit Diagnoses Not on filedocumented in this encounter Additional Health Concerns Infection Onset Date Last Indicated Resolved Time COVID-19 Rule-Out 08/21/2024 08/21/2024 08/21/2024 5:59 PM EDT documented as of this encounter Care Teams Global Risk Management Director Relationship Specialty Start Date End Date Ryan Osborne PA-C [address] [place] [address] [address] [place] [id number] PCP - General Internal Medicine 02/13/24 02/13/24 Yaneth Short MD [address] [place] [address] PCP - General Internal Medicine 02/15/24 Amelia Oliveros PA-C [address] [place] [address], [address] [place] [address] Client Care Specialist Internal Medicine 10/12/24 documented as of this encounter
--- OUTSIDE RECORDS SUMMARY | 2024-12-12 14:04 | XMS_ITS | Encounter Summary ---
Author Organization [facility] Address [address] [place] [address] Care Team Providers Care Rubber Block Layer Name Role Phone Yaneth Short MD Primary Care Provider [phone] Amelia Oliveros PA-C Unavailable [phone] Source Comments In the event this information is protected by the Federal Confidentiality of Alcohol and Drug AbusePatient Records regulations: The Federal rules restrict any use of the information to criminally investigate or prosecute any alcohol or drug abuse patient.[facility] Encounter Details Date Type Department Care Team (Late st Contact Info) Description 09/10/2024 Patient Msg Dentistry [address] [address] Provider, [facility] Dental Information Social History Tobacco Use Types Packs/Day Years Used Date Smoking Tobacco: Never Smokeless Tobacco: Never [facility] Utilities Answer Date Recorded In the past [...] Never 08/14/2024 How often do you attend yazidi or taoist serv ices? Never 08/14/2024 Do you belong to any clubs o r organizations such as yazidi groups, unions, fraternal or athletic groups, or [...] Answer Date Recorded PHQ-2 score 4 08/14/2024 [facility] - Occupational [...] is lower risk 1 02/15/2024 Data from: https://www.neighborhoodatlas.medicine.[facility].edu/. Last address used for calculation CHANG [...] on filedocumented in this encounter Care Teams Rubber Block Layer Relationship Specialty [place] [address] [place] [address] PCP - General Internal Medicine 02/15/24 Amelia Oliveros PA-C [address] [facility], [place] [id number] Office Machines Sales Representative Internal Medicine 10/12/24 documented as of this encounter
--- OUTSIDE RECORDS SUMMARY | 2024-12-12 14:04 | XMS_ITS | Clinical Summary ---
Author Organization [facility] Address [address] [place] [address] Care Team Providers Care Healthcare Business Analyst Name Role Phone Unavailable Primary Care Provider [...] 02/01/2022 Other specified counseling 10/31/2021 Overview (01/10/2023): [facility]: ; [facility] Address: P SRO MTM Medicare Protocol Authorization And if eligible, [facility] protocol authorization Protocol authorized: Yes (Medicare protocol expires 10/31/2024) Authorized by: Bruce Lockett) Authorization method: Staff message Protocol authorized date: 10/31/21 Dysphagia 08/24/2021 Overview (01/10/2023): Added automatically from request for surgery [id number] Type 2 diabetes mellitus wit h diabetic chronic kidney disease 08/24/2021 Type 2 diabetes mellitus 01/24/2021 Other primary thrombophilia 01/05/2021 intermediate accountant (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) use of anticoagulants 2019 Overview (01/10/2023): dabigatran (Pradaxa) 150 mg twice daily Indications: Non-valvular Atrial fibrillation/Flutter Expected length of therapy: Indefinite (Provider to assess risk vs benefits periodically) Considerations: pool: P [facility] Periop Guideline Reference: Go to Clinical Library ==> Search: Anticoagulation Management - Perioperative- Anticoagulation Services Guideline Atherosclerosis of aorta ([facility]) 08/04/2020 Diabetic cataract, associate d with type 2 diabetes mellitus ([facility]) ([facility]) 05/27/2020 History of cerebrovascular a ccident (CVA) with residual deficit 03/22/2020 Overview (01/10/2023): 2007. Perioperative. Some residual right hemianopsia and memory. Atrial fibrillation 01/27/2020 Acute respiratory failure with hypoxemia 020 Acute systolic heart failure 01/26/2020 Chronic obstructive pulmonary disease ([facility]) 01/04 Hyperlipidemia 11/11/2019 Arteriosclerosis of coronary artery 11/14/2018 Chronic heart failure with preserved ejection fr action 11/14/2018 Type 2 diabetes mellitus wit hout complication ([facility]) ([facility]) 03/08/2018 Type 2 diabetes mellitus wit hout complication, without long-term current use of insulin ([facility] ([facility]) 03/08/2018 Dyspnea on exertion 02/16/2018 Seizure ([facility]) 08/08/2017 Stage 2 chronic kidney disease 09/08/2016 [...] 10/12/2015 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 ([facility] ) ([facility]) 01/30/2014 Hemianopia, homonymous, right 12/09/2013 Cognitive impairment 11/03/2013 Embolic stroke ([facility]) 11/03/2013 History of cerebrovascular accident 11/03/2013 Overview [...] Orientation Not on file Plan of Treatment Health Maintenance Due Date Last Done Comments Dental Oral Exam 1945 Dental X-Ray: Bitewings 1945 Dental X-Ray: Full Mouth 1945 Dental Prophylaxis 07/14/2023 01/10/2023 Dental X-Ray: Panoramic 01/12/2026 01/11/2023, 01/10 Meningococcal B Vaccine Aged Out No l onger eligible based on patient's age to complete this topic Procedures Procedure Name Priority Date/Time Associated Diagnosis Comments PANORAMIC RADIOGRAPHIC IMAGE Routine 01/10/2023 10:30 AM PST PROPHYLAXIS - ADULT Routine 01/10/2023 1 0:30 AM PST from Last 3 Months or Most Recently Relevant to Health Maintenance [facility]
--- NOTE | 2024-12-12 14:09 | ED.GENADULT ---
HPI - General Adult General Chief complaint: Unspecified Stated complaint: wants a covid test Focused HPI: 79-year-old male with history of AFib, hypertrophic cardiomyopathy, hypertension, CHF presents to the ED for COVID test. Patient was admitted to our hospital on 11/27/2024 and discharged on 12/05/2024 for COVID-19, pneumonia, AFib. Patient presents today because he states he was told to come to the ER to get retested for COVID. He denies symptoms including chest pain, shortness of breath, cough or congestion, fever, body aches or chills. GENERAL: Well-appearing, well-nourished, and in no acute distress. HEAD: Normocephalic, atraumatic. CHEST: Clear to auscultation. ?No respiratory distress. HEART: Regular rate and rhythm.? NEURO: ?Alert and oriented x3. Patient screened in triage and initial orders placed.? ?Additional care and disposition to be based upon?diagnostic testing and treatment. History of Present Illness HPI narrative: Agree with the above triage note Related Data Home Medications ?Medication ?Instructions ?Recorded ?Confirmed ?Last Taken ?Type atorvastatin 40 mg tablet 40 mg PO DAILY 11/27/24 11/27/24 11/26/24 08:00 History 40 mg fluticasone 250 mcg-salmeterol 50 1 inh inhalation Q12H 11/27/24 11/27/24 11/26/24 20:00 History mcg/dose blistr powdr for inhalation lisinopril 10 mg tablet 10 mg PO BID 11/27/24 11/27/24 11/26/24 20:00 History 10 mg metformin 500 mg tablet,extended 500 mg PO DAILY 11/27/24 11/27/24 11/26/24 08:00 History release 24 hr 500 mg metoprolol succinate 25 mg 25 mg PO Q12H 11/27/24 11/27/24 11/26/24 08:00 History tablet,extended release 24 hr 25 mg potassium chloride 20 mEq 20 meq PO DAILY 11/27/24 11/27/24 11/26/24 06:00 History tablet,extended release(part/cryst) 20 mEq sertraline 100 mg tablet 200 mg PO Q24H 11/27/24 11/29/24 11/26/24 06:00 History 100 mg tiotropium bromide 2.5 2 inh inhalation .q12 11/27/24 11/27/24 11/26/24 20:00 History mcg/actuation mist for inhalation 1 inh (Spiriva Respimat) Allergies Allergy/AdvReac Type Severity Reaction Status Date / Time No Known Allergies Allergy Verified 11/27/24 15:09 Review of Systems Review of Systems: All systems reviewed & are unremarkable except as noted in HPI and below PMFSH Past Medical History Medical History CHF (congestive heart failure) Sleep apnea Cardiomyopathy COPD (chronic obstructive pulmonary disease) Atrial fibrillation Social History Social History Smoking status: Former smoker Alcohol intake: current Drinks per week: 10 Substance use type: marijuana Do You Feel Safe in your Home?: Yes Lack of Transportation: No Lack of Food: Never True Current Housing: I Have Housing Concerned About Future Housing: YES Difficulty Paying Gas/Electric Bills: No Difficulty Paying for Meds: No Currently Unemployed: No Education: Master's Degree or Higher Difficulty w/ Childcare or Family Care: No Spiritual care concerns: No Exam Narrative: GENERAL: Well-appearing, well-nourished, and in no acute distress. HEAD: Normocephalic, atraumatic. EYES: EOMI. ENT: Nares clear, no rhinorrhea or epistaxis. Mucous membranes moist. NECK: Supple. CHEST: Clear to auscultation. No respiratory distress. HEART: Regular rate and rhythm. No murmur heard. Normal peripheral pulses. ABDOMEN: Soft, nontender, nondistended, normal active bowel sounds. EXTREMITIES: Normal range of motion. No edema. SKIN: Warm, dry, no rash. NEURO: No focal deficits. Alert and oriented x3 Course Vital Signs Vital signs: Vital Signs Temperature 97.6 F 12/12/24 14:03 Pulse Rate 110 H 12/12/24 14:03 Respiratory Rate 17 12/12/24 14:03 Blood Pressure 155/85 H 12/12/24 14:03 Pulse Oximetry 97 12/12/24 14:03 Oxygen Delivery Room Air 12/12/24 14:03 Temperature 97.6 F 12/12/24 14:03 Pulse Rate 82 12/12/24 16:55 Respiratory Rate 17 12/12/24 16:55 Blood Pressure 155/85 H 12/12/24 14:03 Pulse Oximetry 98 12/12/24 16:55 Oxygen Delivery Room Air 12/12/24 14:03 Medical Decision Making MDM Narrative Medical decision making narrative: 79-year-old male presents emergency department for COVID-19 test. Patient recently hospitalized for COVID pneumonia and states he was told by staff to come back to the ER to be tested. Triage vitals with tachycardia 110 but this has since resolved. Patient is afebrile nontoxic appearing. He is asymptomatic. Repeat viral swabs did indicate positive COVID-19 test. Prior to discussing results, patient became very irate and verbally abusive to staff in the waiting room. I did pull the patient back into the triage bay to discuss lab results. I attempted to discuss return precautions and expectant management, however patient continued to speak aggressively to myself and staff. He was discharged in stable condition and with a steady gait. Vital Signs Vital Signs: Vital Signs Temperature 97.6 F 12/12/24 14:03 Pulse Rate 110 H 12/12/24 14:03 Respiratory Rate 17 12/12/24 14:03 Blood Pressure 155/85 H 12/12/24 14:03 Pulse Oximetry 97 12/12/24 14:03 Oxygen Delivery Room Air 12/12/24 14:03 Temperature 97.6 F 12/12/24 14:03 Pulse Rate 82 12/12/24 16:55 Respiratory Rate 17 12/12/24 16:55 Blood Pressure 155/85 H 12/12/24 14:03 Pulse Oximetry 98 12/12/24 16:55 Oxygen Delivery Room Air 12/12/24 14:03 Lab Data Labs: Lab Results 12/12/24 Range/Units 14:34 Influenza A (RT-PCR) Negative (Negative) Influenza B (RT-PCR) Negative (Negative) RSV (RT-PCR) Negative (Negative) SARS-CoV-2 RNA (RT-PCR) Positive A (Negative) Discharge Plan Discharge Clinical Impression: COVID-19 Patient Disposition: Home, Self-Care Condition: Stable Instructions: Antibiotic Form, COVID-19 (Coronavirus Disease 2019) (ED) Additional Instructions: Your were evaluated in the emergency department for COVID test. You did test positive for COVID-19. Please take Tylenol as needed body aches and fevers and follow up with her primary care provider. Return to the emergency department if you are unable to tolerate food or fluids, developed chest pain or shortness of breath, or other concerning symptoms. Patient Language: Mozambican Prescriptions: No Action atorvastatin 40 mg tablet 40 mg PO DAILY Spiriva Respimat 2.5 mcg/actuation mist 2 inh inhalation .q12 sertraline 100 mg tablet 200 mg PO Q24H potassium chloride 20 mEq tablet,ER particles/crystals 20 meq PO DAILY metoprolol succinate 25 mg tablet extended release 24 hr 25 mg PO Q12H metformin 500 mg tablet extended release 24 hr 500 mg PO DAILY lisinopril 10 mg tablet 10 mg PO BID fluticasone propion-salmeterol 250-50 mcg/dose blister with device 1 inh INHALATION Q12H furosemide 40 mg Tablet 40 mg PO DAILY Qty: 30 0RF Jardiance 10 mg Tablet 10 mg PO DAILY Qty: 30 0RF aspirin [Children's Aspirin] 81 mg Tablet,Chewable 81 mg PO DAILY@0800 Qty: 30 0RF Eliquis 5 mg tablet 5 mg PO Q12H Qty: 60 0RF Follow-up/Referrals: UNKNOWN,DOCTOR [Primary Care Provider] -
[2024-12-12 15:16] LABS: Influenza A QL RT-PCR Negative (Negative); Influenza B QL RT-PCR Negative (Negative); RSV RNA, RT-PCR Negative (Negative); SARS-CoV-2 RNA PCR Positive (Negative)
[2024-12-12 16:55] VITALS: PULSE 82; RESP 17; O2SAT 98
--- OUTSIDE RECORDS SUMMARY | 2024-12-12 17:00 | XMS_ITS | Encounter Summary ---
Author Organization [facility] Address [address] [place] [address] Care Team Providers Care History Professor Name Role Phone Yaneth Short MD Primary Care Provider [phone] Amelia Oliveros PA-C Unavailable [phone] Source Comments In the event this information is protected by the Federal Confidentiality of Alcohol and Drug AbusePatient Records regulations: The Federal rules restrict any use of the information to criminally investigate or prosecute any alcohol or drug abuse patient.[facility] Encounter Details Date Type Department Care Team (Late st Contact Info) Description 09/10/2024 Patient Msg Dentistry [address] [address] Provider, [facility] Dental Information Social History Tobacco Use Types Packs/Day Years Used Date Smoking Tobacco: Never Smokeless Tobacco: Never [facility] Utilities Answer Date Recorded In the past [...] Never 08/14/2024 How often do you attend samaritan or confucianism serv ices? Never 08/14/2024 Do you belong to any clubs o r organizations such as samaritan groups, unions, fraternal or athletic groups, or [...] Answer Date Recorded PHQ-2 score 4 08/14/2024 [facility] - Occupational [...] is lower risk 1 02/15/2024 Data from: https://www.neighborhoodatlas.medicine.[facility].edu/. Last address used for calculation [...] on filedocumented in this encounter Care Teams History Professor Relationship Specialty [place] [address] [place] [address] PCP - General Internal Medicine 02/15/24 Amelia Oliveros PA-C [address] [facility], [place] [phone] Locomotive Engineer Diesel Internal Medicine 10/12/24 documented as of this encounter
--- OUTSIDE RECORDS SUMMARY | 2024-12-12 17:00 | XMS_ITS | Encounter Summary ---
Author Organization [facility] Address [address] [place] [address] Care Team Providers Care Roof Panel Hanger Name Role Phone Yaneth Short MD Primary Care Provider [phone] Amelia Oliveros PA-C Unavailable [phone] Source Comments In the event this information is protected by the Federal Confidentiality of Alcohol and Drug AbusePatient Records regulations: The Federal rules restrict any use of the information to criminally investigate or prosecute any alcohol or drug abuse patient.[facility] Encounter Details Date Type Department Care Team (Late st Contact Info) Description 02/18/2024 Patient Msg Rehab and Sports Therapy [address] [place] [address] Provider, [facility] Questionnaire Submission Social History Tobacco Use Types Packs/Day Years Used Date Smoking Tobacco: Never Smokeless Tobacco: Never PHQ-2 Answer Date Recorded PHQ-2 score 0 09/26/2023 Area Deprivation Index Answer Date Haider rded National Score (1-100), lower number is lower ri sk 33 02/15/2024 State Score (1-10), lower number is lower risk 1 02/15/2024 Data from: https://www.neighborhoodatlas.medicine.[facility].edu/. Last address used for calculation CHANG STORY [...] documented as of this encounter Care Teams Roof Panel Hanger Relationship Specialty Start Date [place] Yan[place] [id number] [place] [address] PCP - General Internal Medicine 02/15/24 Amelia Oliveros PA-C [address] [place] [address], [address] [place] [address] Silk Screen Etcher Internal Medicine 10/12/24 documented as of this encounter
--- OUTSIDE RECORDS SUMMARY | 2024-12-12 17:00 | XMS_ITS | Encounter Summary ---
Author Organization [facility] Address [address] [place] [address] Care Team Providers Care Public Housing Interviewer Name Role Phone Yaneth Short MD Primary Care Provider [phone] Amelia Oliveros PA-C Unavailable [phone] Source Comments In the event this information is protected by the Federal Confidentiality of Alcohol and Drug AbusePatient Records regulations: The Federal rules restrict any use of the information to criminally investigate or prosecute any alcohol or drug abuse patient.[facility] Encounter Details Date Type Department Care Team (Late st Contact Info) Description 08/27/2024 Patient Msg Geriatrics [address] [place] [phone] Provider, Ccf Geriatric appointment needs scheduled Social History Tobacco Use Types Packs/Day Years Used Date Smoking Tobacco: Never Smokeless Tobacco: Never [facility] Utilities Answer Date Recorded In the past 12 months has th [employer] electric, gas, oil, or water company threatened [...] Never 08/14/2024 How often do you attend restoration or rastafarian serv ices? Never 08/14/2024 Do you belong to any clubs o r organizations such as restoration groups, unions, fraternal or athletic groups, or [...] Answer Date Recorded PHQ-2 score 4 08/14/2024 [facility] - Occupational Stress Questionnaire Answer Date Recorded [...] is lower risk 1 02/15/2024 Data from: https://www.neighborhoodatlas.medicine.[facility].edu/. Last address used for calculation CHANG [...] on filedocumented in this encounter Care Teams Public Housing Interviewer Relationship Specialty [place] [address] [place] [address] PCP - General Internal Medicine 02/15/24 Amelia Oliveros PA-C [address] [place] [address], [place] [phone] Recruitment Specialist Internal Medicine 10/12/24 documented as of this encounter
--- OUTSIDE RECORDS SUMMARY | 2024-12-12 17:00 | XMS_ITS | Encounter Summary ---
Author Organization [facility] Address [address] [place] [address] Care Team Providers Care Molder Operator Name Role Phone Yaneth Short MD Primary Care Provider [phone] Amelia Oliveros PA-C Unavailable [phone] Source Comments In the event this information is protected by the Federal Confidentiality of Alcohol and Drug AbusePatient Records regulations: The Federal rules restrict any use of the information to criminally investigate or prosecute any alcohol or drug abuse patient.[facility] Encounter Details Date Type Department Care Team (Late st Contact Info) Description 08/28/2024 [place] [address] Provider, [facility] Dental Financial Clearance Social History Tobacco Use Types Packs/Day Years Used Date Smoking Tobacco: Never Smokeless Tobacco: Never [facility] Utilities Answer Date Recorded In the past 12 months has [employer] electric, gas, oil, or water company threatened [...] Never 08/14/2024 How often do you attend sabianist or cheondoism serv ices? Never 08/14/2024 Do you belong to any clubs o r organizations such as sabianist groups, unions, fraternal or athletic groups, or [...] Answer Date Recorded PHQ-2 score 4 08/14/2024 [facility] - Occupational Stress [...] is lower risk 1 02/15/2024 Data from: https://www.neighborhoodatlas.medicine.[facility].edu/. Last address used for calculation [...] on filedocumented in this encounter Care Teams Molder Operator Relationship Specialty [place] [address] [place] [address] PCP - General Internal Medicine 02/15/24 Amelia Oliveros PA-C [address] [facility], [place] [phone] Window Framer Internal Medicine 10/12/24 documented as of this encounter
--- OUTSIDE RECORDS SUMMARY | 2024-12-12 17:01 | XMS_ITS | Clinical Summary ---
Author Organization [facility] Address [address] [place] [address] Care Team Providers Care Back Tacker Name Role Phone Yaneth Short MD Primary Care Provider [phone] Amelia Oliveros PA-C Unavailable [phone] Allergies No known active allergies Medications Medication [...] kidney disease, unspecified CKD stage, unspecified whether director long term care insulin use 09/26/2023 Essential hypertension 09/26/2023 Assessment [...] Description 10/11/2024 Get Medical Advice Internal Medicine [address] [place] [address] [place] [phone] Yaneth Short MD Is malpractice in your arena. 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 Never 08/14/2024 Do you belong to any clubs o r organizations such as roman catholic groups, unions, fraternal or athletic groups, or [...] Answer Date Recorded PHQ-2 score 4 08/14/2024 [facility] of Occupat ional Health - Occupational Stress [...] is lower risk 1 02/15/2024 Data from: https://www.neighborhoodatlas.medicine.[facility].edu/. Last address used for calculation [...] kidney disease, unspecified CKD stage, unspecified whether chcf insulin use (HCC) LIPID PANEL BASIC Routine 02/27/2024 3:3 8 PM EDT Hyperlipidemia, unspecified hyperlipidemia type from Last 3 Months or Most Recently Relevant to Health Maintenance Results * YAG CAPSULOTOMY OD (RIGHT EYE) (09/12/2024 9:17 AM EST) Angel Luis Isabel MD - 09/12/2024 9:17 AM EST Date of Procedure 09/12/2024 [place] Protocol Safety Checklist Sign In: A moment [...] 9:16 AM EST Date of Procedure 09/12/2024 [place] Protocol Safety Checklist Sign In: A moment [...] 9:14 AM EST Date of Procedure 09/12/2024 [place] Protocol Safety Checklist Sign In: A moment [...] COMPREHENSIVE METABOLIC PANEL (08/21/2024 1:18 PM EDT) [facility] Protein, Total 6.9 6.3 - 8.0 g/dL 08/21/2024 2:11 PM EDT [facility] Albumin 4.4 3.9 - 4.9 g/dL 08/21/2024 2:11 PM EDT [facility] Calcium, Total 9.1 8.5 - 10.2 mg/dL 08/21/2024 2:11 PM EDT [facility] Bilirubin, Total 1.0 0.2 - 1.3 mg/dL 08/21/2024 2:11 PM EDT [facility] Alkaline Phosphatase 81 38 - 113 U/L 08/21/2024 2:11 PM EDT [facility] AST 25 14 - 40 U/L 08/21/2024 2:11 PM EDT [facility] ALT 27 10 - 54 U/L 08/21/2024 2:11 PM EDT [facility] Glucose 111(H) 74 - 99 mg/dL 08/21/2024 2:11 PM EDT [facility] Comment: The [place] Diabetes Association (ADA) provides guidance for cutoff [...] Standards of Medical Care in Diabetes 2016, [place] Diabetes Association. Diabetes Care. 2016.39(Suppl 1). BUN 26(H) 9 - 24 mg/dL 08/21/2024 2:11 PM EDT [facility] Creatinine 1.86(H) 0.73 - 1.22 mg/dL 08/21/2024 2:11 PM EDT [facility] Sodium 138 136 - 144 mmol/L 08/21/2024 2:11 PM EDT [facility] Potassium 4.3 3.7 - 5.1 mmol/L 08/21/2024 2:11 PM EDT [facility] Chloride 103 98 - 107 mmol/L 08/21/2024 2:11 PM EDT [facility] CO2 21(L) 22 - 30 mmol/L 08/21/2024 2:11 PM EDT [facility] Anion Gap 14 8 - 15 mmol/L 08/21/2024 2:11 PM EDT [facility] Estimated Glomerular Filtration Rate 37(L) >=60 mL/min/1. 73m 08/21/2024 2:11 PM EDT [facility] Comment:Estimated Glomerular Filtration Rate (eGFR) is [...] 1:28 PM EDT Jermaine Mensah DO LABORATORY [facility] [address] * (ABNORMAL) COMPLETE BLOOD COUNT AND DIFFERENTIAL (08/21/2024 1:18 PM EDT) WBC 9.20 3.70 - 11.00 k/uL 08/21/2024 1:33 PM EDT [facility] RBC 4.79 4.20 - 6.00 m/uL 08/21/2024 1:33 PM EDT [facility] Hemoglobin 15.8 13.0 - 17.0 g/dL 08/21/2024 1:33 PM EDT [facility] Hematocrit 43.0 39.0 - 51.0 % 08/21/2024 1:33 PM EDT [facility] MCV 89.8 80.0 - 100.0 fL 08/21/2024 1:33 PM EDT [facility] MCH 33.0 26.0 - 34.0 pg 08/21/2024 1:33 PM EDT [facility] MCHC 36.7(H) 30.5 - 36.0 g/dL 08/21/2024 1:33 PM EDT [facility] RDW-CV 12.5 11.5 - 15.0 % 08/21/2024 1:33 PM EDT [facility] Platelet Count 205 150 - 400 k/uL 08/21/2024 1:33 PM EDT [facility] MPV 11.1 9.0 - 12.7 fL 08/21/2024 1:33 PM EDT [facility] Neutrophils % 77.2 % 08/21/2024 1:33 PM EDT [facility] Abs Neut 7.10 1.45 - 7.50 k/uL 08/21/2024 1:33 PM EDT [facility] Lymphocytes % 12.2 % 08/21/2024 1:33 PM EDT [facility] Abs Lymph 1.12 1.00 - 4.00 k/uL 08/21/2024 1:33 PM EDT [facility] Monocytes % 7.2 % 08/21/2024 1:33 PM EDT [facility] Abs Potter 0.66 <0.87 k/uL 08/21/2024 1:33 PM EDT [facility] Eosinophils % 1.8 % 08/21/2024 1:33 PM EDT [facility] Abs Eosin 0.17 <0.46 k/uL 08/21/2024 1:33 PM EDT [facility] Basophils % 0.4 % 08/21/2024 1:33 PM EDT [facility] Abs Baso 0.04 <0.11 k/uL 08/21/2024 1:33 PM EDT [facility] Immature Granulocytes % 1.2 % 08/21/2024 1:33 PM EDT [facility] Abs Immature Gran 0.11(H) <0.10 k/uL 08/21/2024 1:33 PM EDT [facility] NRBC 0.0 /100 WBC 08/21/2024 1:33 PM EDT [facility] Absolute nRBC <0.01 <0.01 k/uL 08/21/2024 1:33 PM EDT [facility] Diff Type Auto 08/21/2024 1:33 PM EDT [facility] Blood BLOOD SPECIMEN / Unknown Venipuncture / Unknown 08/21/2024 1:18 PM EDT 08/21/2024 1:28 PM EDT Jermaine Mensah DO LABORATORY [facility] [address] [place] [address], * HEMOGLOBIN A1C (POC) (08/21/2024 10:29 AM EDT) Hemoglobin A1C (POCT) 5.4 4.3 - 5.6 % [facility] Comment: Location:[facility], [address] [place] [address], [address] Point of care (POC) Hemoglobin A1c (HGBA1C) [...] specific diabetes management situations: The POC device delivery lead provides a normal range of 4.2% to 6.5% for the HGBA1C POC test. However, the [place] Diabetes Association guidelines indicate that patients with [...] Short MD POC TESTING Performing Organization Address City/[facility]/ZIP Co de Phone Number [facility] POINT OF CARE [facility] [address] [place], [place] * (ABNORMAL) ALBUMIN/CREATININE RATIO, URINE (02/27/2024 3:51 PM EDT) Creatinine, Ur Random (UCRR) 35.7 20.0 - 300.0 mg/dL 02/27/2024 10:24 PM EDT [facility] Albumin, Urine Random 102.7 mg/L 02/27/2024 10:24 PM EDT [facility] Albumin/Creat Ratio 288(H) <30 mg/g 02/27/2024 10:24 PM EDT [facility] Comment: Adult Male and Female [...] 3:51 PM EDT Ryan Osborne PA-C LABORATORY [facility] [address] [place] [address], * (ABNORMAL) LIPID PANEL BASIC (02/27/2024 3:38 PM EDT) Cholesterol, Total 113 <200 mg/dL 02/27/2024 4:26 PM EDT [facility] Comment: <200 mg/dL, Desirable 200-239 mg/dL, Borderline high >239 mg/dL, High Triglyceride 222(H) <150 mg/dL 02/27/2024 4:26 PM EDT [facility] Comment: <150 mg/dL, Normal 150-199 mg/dL, Borderline high 200-499 mg/dL, High >499 mg/dL, Very high HDL Cholesterol 39(L) >39 mg/dL 4:26 PM EDT [facility] Comment: 40-59 mg/dL, Acceptable >59 mg/dL, High: Negative risk factor for coronary heart disease <40 mg/dL, Low: Positive risk factor for coronary heart disease Non HDL Cholesterol 74 <130 mg/dL 02/27/2024 4:26 PM EDT [facility] Comment: <130 mg/dL, Optimal 130-159 mg/dL, Near optimal/above optimal 160-189 mg/dL, Borderline high 190-219 mg/dL, High >219 mg/dL, Very high Secondary prevention optimal non HDL Cholesterol levels are recommended to be <100 mg/dL Fasting Time 14 hrs 02/27/2024 4:26 PM EDT [facility] VLDL Cholesterol 44(H) <30 mg/dL 02/27/20 4:26 PM EDT [facility] TC:HDL Ratio 2.90 <5.10 02/27/2024 4:26 PM EDT [facility] LDL Cholesterol 30 <100 mg/dL 02/27/2024 4:26 PM EDT [facility] Comment: <100 mg/dL, Optimal 100-129 mg/dL, Near optimal/above optimal 130-159 mg/dL, Borderline high 160-189 mg/dL, High >189 mg/dL, Very high Secondary prevention optimal LDL Cholesterol levels are recommended to be < 70 mg/dL LDL:HDL Ratio 0.77 <2.54 02/27/2024 4:26 PM EDT [facility] Comment: Reference: 1. National Cholesterol Education Program ATP III Guideline At-A-Glance Quick Desk Reference: National Heart, Lung, and Blood [place]. National Institutes of Health. 2001: NIH Publication No. 01-3305. 2. An International Atherosclerosis Society position paper: global recommendations for the management of dyslipidemia: executive summary, Atherosclerosis. 2014: 232(2):410-413. Blood BLOOD SPECIMEN / Unknown Venipuncture / Unknown 02/27/2024 3:38 PM EDT 02/27/2024 3:39 PM EDT Ryan Osborne PA-C LABORATORY [facility] [address] [place] [address], from Last 3 Months or Most Recently Relevant to Health Maintenance Care Teams Back Tacker Relationship Specialty [place] [address] [place], [place] [phone] PCP - General Internal Medicine 02/15/24 Amelia Oliveros PA-C [address] [facility], [address] [place], [place] [phone] Cardiothoracic Physiotherapist Internal Medicine 10/12/24
--- OUTSIDE RECORDS SUMMARY | 2024-12-12 17:01 | XMS_ITS ---
Author Organization [facility] Address [address] [place] [address] Care Team Providers Care Floor Sweeper Name Role Phone Unavailable Unavailable Unavailable Surgery Details Not on file Complications Check Surgery Details section. Procedure Estimated Blood Loss Check Surgery Details section. Procedure Findings Check Surgery Details section. Procedure Specimens Taken Check Surgery Details section.
--- OUTSIDE RECORDS SUMMARY | 2024-12-12 17:01 | XMS_ITS | Encounter Summary ---
Author Organization [facility] Address [address] [place] [address] Care Team Providers Care C D Reactor Operator Name Role Phone Yaneth Short MD Primary Care Provider [phone] Amelia Oliveros PA-C Unavailable [phone] Source Comments In the event this information is protected by the Federal Confidentiality of Alcohol and Drug AbusePatient Records regulations: The Federal rules restrict any use of the information to criminally investigate or prosecute any alcohol or drug abuse patient.[facility] Encounter Details Date Type Department Care Team (Late st Contact Info) Description 09/18/2024 Patient Msg Dentistry [address] [address] Provider, Ccf please call to schedule Social History Tobacco Use Types Packs/Day Years Used Date Smoking Tobacco: Never Smokeless Tobacco: Never [facility] Utilities Answer Date Recorded In the past 12 months has [employer], gas, oil, or water company threatened to [...] Never 08/14/2024 How often do you attend tenriism or faith serv ices? Never 08/14/2024 Do you belong to any clubs o r organizations such as tenriism groups, unions, fraternal or athletic groups, or [...] Answer Date Recorded PHQ-2 score 4 08/14/2024 [facility] of Occupat ional [facility] - Occupational Stress Questionnaire Answer Date [...] is lower risk 1 02/15/2024 Data from: https://www.neighborhoodatlas.medicine.[facility].edu/. Last address used for calculation [...] on filedocumented in this encounter Care Teams C D Reactor Operator Relationship Specialty [place] [address] [place] [address] PCP - General Internal Medicine 02/15/24 Amelia Oliveros PA-C [address] [place] [address], [place] [phone] Design Drafter Chief Internal Medicine 10/12/24 documented as of this encounter
--- OUTSIDE RECORDS SUMMARY | 2024-12-12 17:01 | XMS_ITS | Encounter Summary ---
Author Organization [facility] Address [address] [place], [place] [phone] Care Team Providers Care Flagstone Layer Name Role Phone Ryan Osborne PA-C Primary Care Provider [phone] Yaneth Short MD Primary Care Provider [phone] Amelia Oliveros PA-C Unavailable [phone] Source Comments In the event this information is protected by the Federal Confidentiality of Alcohol and Drug AbusePatient Records regulations: The Federal rules restrict any use of the information to criminally investigate or prosecute any alcohol or drug abuse patient.[facility] Encounter Details Date Type Department Care Team (Late st Contact Info) Description 02/07/2024 Patient Msg Internal Medicine [address] [place] [address] [address] [place] [address] Ryan Osborne PA-C [address] [place] [address] Appointment Request Social History Tobacco [...] documented as of this encounter Care Teams Flagstone Layer Relationship Specialty Start Date End Date Ryan Osborne PA-C [address] [place] [address] [address] [place] [address] PCP - General Internal Medicine 02/13/24 02/13/24 Yaneth Short MD [address] [place] [address] PCP - General Internal Medicine 02/15/24 Amelia Oliveros PA-C [address] [place] [address], [address] [place] [address] Therapist Phys Internal Medicine 10/12/24 documented as of this encounter
--- OUTSIDE RECORDS SUMMARY | 2024-12-12 17:01 | XMS_ITS | Encounter Summary ---
Author Organization [facility] Address [address] [place] [address] Care Team Providers Care Grain Loader Name Role Phone Yaneth Sohrt MD Primary Care Provider [phone] Amelia Oliveros PA-C Unavailable [phone] Source Comments In the event this information is protected by the Federal Confidentiality of Alcohol and Drug AbusePatient Records regulations: The Federal rules restrict any use of the information to criminally investigate or prosecute any alcohol or drug abuse patient.[facility] Encounter Details Date Type Department Care Team (Late st Contact Info) Description 10/02/2024 Patient Msg Cardiology [address] [place] [address] Provider, Ccf Appointment Cancellation Request Social History Tobacco Use Types Packs/Day Years Used Date Smoking Tobacco: Never Smokeless Tobacco: Never [facility] Utilities Answer Date Recorded In the past 12 months has [employer], gas, oil, or water company threatened to [...] How often do you attend mu-ism or episcopal serv ices? Never 08/14/2024 Do you belong [...] Answer Date Recorded PHQ-2 score 4 08/14/2024 [facility] of Occupat ional [facility] - Occupational Stress Questionnaire Answer Date [...] is lower risk 1 02/15/2024 Data from: https://www.neighborhoodatlas.medicine.[facility].edu/. Last address used for calculation [...] on filedocumented in this encounter Care Teams Grain Loader Relationship Specialty [place] [address] [place] [address] PCP - General Internal Medicine 02/15/24 Amelia Oliveros PA-C [address] [place] [address], [place] [phone] Reference Archivist Internal Medicine 10/12/24 documented as of this encounter
--- OUTSIDE RECORDS SUMMARY | 2024-12-12 17:01 | XMS_ITS | Referral Summary ---
Author Organization [facility] Address [address] [place] [address] Care Team Providers Care Horse Wrangler Name Role Phone Unavailable Primary Care Provider [...] 02/01/2022 Other specified counseling 10/31/2021 Overview (01/10/2023): [facility]: ; [facility] Address: P SRO MTM Medicare Protocol Authorization And if eligible, [facility] protocol authorization Protocol authorized: Yes (Medicare protocol expires 10/31/2024) Authorized by: Bruce Lockett) Authorization method: Staff message Protocol authorized date: 10/31/21 Dysphagia 08/24/2021 Overview (01/10/2023): Added automatically from request for surgery [id number] Type 2 diabetes mellitus wit h diabetic chronic kidney disease 08/24/2021 Type 2 diabetes mellitus 01/24/2021 Other primary thrombophilia 01/05/2021 medical terminologist (current) use of anticoagulants 2019 Overview (01/10/2023): dabigatran (Pradaxa) 150 mg twice daily Indications: Non-valvular Atrial fibrillation/Flutter Expected length of therapy: Indefinite (Provider to assess risk vs benefits periodically) Considerations: pool: [facility] Periop Guideline Reference: Go to Clinical Library ==> Search: Anticoagulation Management - Perioperative- Anticoagulation Services Guideline Atherosclerosis of aorta ([facility]) 08/04/2020 Diabetic cataract, associate d with type 2 diabetes mellitus ([facility]) ([facility]) 05/27/2020 History of cerebrovascular a ccident (CVA) with residual deficit 03/22/2020 Overview (01/10/2023): 2007. Perioperative. Some residual right hemianopsia and memory. Atrial fibrillation 01/27/2020 Acute respiratory failure with hypoxemia 020 Acute systolic heart failure 01/26/2020 Chronic obstructive pulmonary disease ([facility]) 01/04 Hyperlipidemia 11/11/2019 Arteriosclerosis of coronary artery 11/14/2018 Chronic heart failure with preserved ejection fr action 11/14/2018 Type 2 diabetes mellitus wit hout complication ([facility]) ([facility]) 03/08/2018 Type 2 diabetes mellitus wit hout complication, without long-term current use of insulin ([facility]) ([facility]) 03/08/2018 Dyspnea on exertion 02/16/2018 Seizure ([facility]) 08/08/2017 Stage 2 chronic kidney [...] 10/12/2015 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
--- OUTSIDE RECORDS SUMMARY | 2024-12-12 17:01 | XMS_ITS | Encounter Summary ---
Author Organization [facility] Address [address] [place] [address] Care Team Providers Care Professor Of Education Name Role Phone Yaneth Short MD Primary Care Provider [phone] Amelia Oliveros PA-C Unavailable [phone] Source Comments In the event this information is protected by the Federal Confidentiality of Alcohol and Drug AbusePatient Records regulations: The Federal rules restrict any use of the information to criminally investigate or prosecute any alcohol or drug abuse patient.[facility] Encounter Details Date Type Department Care Team (Late st Contact Info) Description 03/03/2024 Patient Msg [facility] Physical Therapy [address] [place] [address] Pa Kelley, PT [address] [place] [address] Appointment Request Social History Tobacco Use Types Packs/Day Years Used Date Smoking Tobacco: Never Smokeless Tobacco: Never PHQ-2 Answer Date Recorded PHQ-2 score 0 09/26/2023 Area Deprivation Index Answer Date Haider rded National Score (1-100), lower number is lower ri sk 33 02/15/2024 State Score (1-10), lower number is lower risk 1 02/15/2024 Data from: https://www.neighborhoodatlas.[facility]/. Last address used for calculation [employer] [...] documented as of this encounter Care Teams Professor Of Education Relationship Specialty Start Date End Date Yaneth Short MD [address] [place] [address] PCP - General Internal Medicine 02/15/24 Amelia Oliveros PA-C [address] [place] [address], [address] [place] [address] Collection Systems Technician Internal Medicine 10/12/24 documented as of this encounter
--- OUTSIDE RECORDS SUMMARY | 2024-12-12 17:01 | XMS_ITS | Clinical Summary ---
Author Organization [facility] [place] [place] Address [address] [place] [address] Care Team Providers Care Mid Level Business Analyst Name Role Phone Unavailable Primary [...] 02/01/2022 Other specified counseling 10/31/2021 Overview (01/10/2023): [facility]: ; [facility] Address: P SRO MTM Medicare Protocol Authorization And if eligible, [facility] protocol authorization Protocol authorized: Yes (Medicare protocol expires 10/31/2024) Authorized by: Bruce Lockett) Authorization method: Staff message Protocol authorized date: 10/31/21 Dysphagia 08/24/2021 Overview (01/10/2023): Added automatically from request for surgery [id number] Type 2 diabetes mellitus wit h diabetic chronic kidney disease 08/24/2021 Type 2 diabetes mellitus 01/24/2021 Other primary thrombophilia 01/05/2021 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 2019 Overview (01/10/2023): dabigatran (Pradaxa) 150 mg twice daily Indications: Non-valvular Atrial fibrillation/Flutter Expected length of therapy: Indefinite (Provider to assess risk vs benefits periodically) Considerations: pool: [facility] Periop Guideline Reference: Go to Clinical Library ==> Search: Anticoagulation Management - Perioperative- Anticoagulation Services Guideline Atherosclerosis of aorta ([facility]) 08/04/2020 Diabetic cataract, associate d with type 2 diabetes mellitus ([facility]) ([facility]) 05/27/2020 History of cerebrovascular a ccident (CVA) with residual deficit 03/22/2020 Overview (01/10/2023): 2007. Perioperative. Some residual right hemianopsia and memory. Atrial fibrillation 01/27/2020 Acute respiratory failure with hypoxemia 020 Acute systolic heart failure 01/26/2020 Chronic obstructive pulmonary disease ([facility]) 01/04 Hyperlipidemia 11/11/2019 Arteriosclerosis of coronary artery 11/14/2018 Chronic heart failure with preserved ejection fr action 11/14/2018 Type 2 diabetes mellitus wit hout complication ([facility]) ([facility]) 03/08/2018 Type 2 diabetes mellitus wit hout complication, without long-term current use of insulin ([place]) ([facility]) 03/08/2018 Dyspnea on exertion 02/16/2018 Seizure ([facility]) 08/08/2017 Stage 2 chronic kidney disease 09/08/2016 [...] 10/12/2015 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
--- OUTSIDE RECORDS SUMMARY | 2024-12-12 17:01 | XMS_ITS | CCD ---
Author Organization [facility] Address [address] [place] [address] Care Team Providers Care Mail Weigher Name Role Phone Unavailable Primary Care Provider [...] 02/01/2022 Other specified counseling 10/31/2021 Overview (01/10/2023): [facility]: ; [facility] Address: [place] MTM Medicare Protocol Authorization And if eligible, 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 Perioperative. Some residual right hemianopsia and memory. Atrial fibrillation 01/27/2020 Acute respiratory failure with hypoxemia 020 Acute systolic heart failure 01/26/2020 Chronic obstructive pulmonary disease ([facility]) 01/04 Hyperlipidemia 11/11/2019 Arteriosclerosis of coronary artery 11/14/2018 Chronic heart failure with preserved ejection fr action 11/14/2018 Type 2 diabetes mellitus wit hout complication ([facility]) ([facility]) 03/08/2018 Type 2 diabetes mellitus wit hout complication, without long-term current use of insulin ([facility]) ([facility]) 03/08/2018 Dyspnea on exertion 02/16/2018 Seizure ([facility]) 08/08/2017 Stage 2 chronic kidney disease 09/08/2016 [...] 10/12/2015 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
--- OUTSIDE RECORDS SUMMARY | 2024-12-12 17:01 | XMS_ITS | Encounter Summary ---
Author Organization [facility] Address [address] [place] [address] Care Team Providers Care Online Community Manager Name Role Phone Unavailable Primary Care Provider Unavailabl e Prior Encounters Date Type Department Care Team Description 01/10/2023 Travel 01/10/2023 10:30 AM PST Office Visit Dentists [address] [phone] Mahnaz Hogan DMD Plan of [...] PST Visit Diagnoses Not on file [facility]
--- NOTE | 2024-12-12 17:15 | PC.NURSE ---
pt. to triage desk and yelling at ER staff stating everyone is ignorant and this is not how a business should be ran. pt. asked to calm down.
== END 2024-12-12 17:00 | disposition home or self-care (01) ==
LOC: ANHED 16:58
PROVIDERS: Emergency Provider Physician Assistant
DX: U07.1 COVID-19 (principal); I48.91 Unspecified atrial fibrillation; I42.2 Other hypertrophic cardiomyopathy; I11.0 Hypertensive heart disease with heart failure; I50.9 Heart failure, unspecified; J44.9 Chronic obstructive pulmonary disease, unspecified; G47.30 Sleep apnea, unspecified; Z87.01 Personal history of pneumonia (recurrent); Z87.891 Personal history of nicotine dependence; Z79.84 Long term (current) use of oral hypoglycemic drugs; Z79.899 Other long term (current) drug therapy
CPT/HCPCS: 87637; 99283